=== PATIENT | female | born 1970 | race Hispanic/Latino ===

== ENCOUNTER 2020-02-23 11:44 | Emergency (ER) | payer BC, OTHER ==
--- OUTSIDE RECORDS SUMMARY | 2020-02-23 11:47 | XMS REPORT | Clinical Summary ---
:1970 Author Organization [facility] Address [address] [place] [address] Care Team Providers Name Role Phone Ricardo Villa MD Primary Care Provider Allergies Active Allergy Reactions Severity Noted Date Comments Nizatidine Rash Low 10/17/2018 Hydrocodone Other (See Comments) 10/17/2018 Deliriu m Morphine 10/21/2018 rash Promethazine Other (See Comments) 10/17/2018 Loss of feeling in lower extremities teodora aterally Medications Medication Sig Dispensed Refills Start Date End Date Status clonAZEPAM (KlonoPIN) 1 Take 1 mg by 0 Active MG tablet mouth 3 (three) times a day as needed for anxiety. FLUoxetine (PROzac) 40 Take 60 mg by 0 Active MG capsule mouth daily. levocetirizine (XYZAL) Take 5 mg by 0 Active 5 MG tablet mouth 2 (two) times a day as needed for allergies. omeprazole (PriLOSEC) Take 20 mg by 0 Active 20 MG capsule mouth daily. As needed for GERD ibuprofen Take 200 mg by 0 Activ e (ADVIL,MOTRIN) 200 MG mouth every 6 tablet (six) hours as needed for headaches. Only take 1-2 times per month ketotifen fumarate Apply 1 drop to 0 Active (ZADITOR OPHT) eye daily. Don't remember strength Active Problems Problem Noted Date Abnormal liver function 10/21/2018 Anxiety 10/21/2018 Abdominal pain 10/19/2018 Gallstones 10/17/2018 Elevated liver enzymes 10/17/2018 Overview: Added automatically from request for rod henson [id number] Generalized abdominal pain 10/17/2018 Overview: Added automatically from request for rod henson [id number] Cholangitis 10/17/2018 Overview: Added automatically from request for rod henson [id number] Surgical History Surgery Date Site/Laterality Comments APPENDECTOMY CHOLECYSTECTOMY, 10/20/2018 Abdomen/N/A Procedure: LAPA ROSCOPOIC LAPAROSCOPIC CHOLECYSTECTOMY WITH INTRAOPERATIVE C HOLANGIOGRAM; Surgeon: Jude Clinton MD; Location: [facility]; Service: General ; Laterality: N/A; US UPPER GI TRACT, 10/23/2018 Left Procedure: UPPER GI TRACT, ENDOSCOPIC ENDOSCOPIC; Rod geon: Stephanie Kapoor MD; Locati on: [facility]; Serv ice: Gastroenterology ; Laterality: Left; EGD W BIOPSY P 10/23/2018 N/A Procedure: EGD W ITH BIOPSY; Surgeon: Halie Kapoor MD; Location: [facility]; Service: Gastroe nterology; Laterality: N/A; Medical History Medical History Date Comments GERD (gastroesophageal reflux disease) IBS (irritable bowel syndrome) Asthma Symptomatic cholelithiasis Social History Tobacco Use Types Packs/Day Years Used Date Never Smoker Smokeless Tobacco: Never Used Alcohol Use Drinks/Week oz/Week Comments Never Alcohol Habits Answer Date Recorded How often do you have a drink containing alcohol? Never 10/17/2018 How many drinks containing alcohol do you have on a typical Not asked day when you are drinking? How often do you have six or more drinks on one occasion? 

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
[2020-02-23 19:35] VITALS: BP 159/109; TEMP 98.4; O2SAT 96
== END 2020-02-23 14:39 | disposition home or self-care (01) ==
LOC: ER 11:44
DX: S00.90XA Unspecified superficial injury of unspecified part of head, initial encounter (principal); Y04.2XXA Assault by strike against or bumped into by another person, initial encounter; Y93.89 Activity, other specified; Y92.009 Unspecified place in unspecified non-institutional (private) residence as the place of occurrence of the external cause; Z88.5 Allergy status to narcotic agent; Z88.8 Allergy status to other drugs, medicaments and biological substances
CPT/HCPCS: 70450; 99283

== ENCOUNTER 2021-08-26 14:31 | Emergency (ER) | payer SELFPAY ==
--- OUTSIDE RECORDS SUMMARY | 2021-08-26 14:34 | XMS REPORT | Continuity of Care Document ---
:1970 Author Organization [facility] t Address [address] [place] [address] Care Team Providers Name Role Phone Pcp, Does Not Have A Primary Care Physician Efrem SANDERS T Attending Clinician Unavailable Pcp, Does Not Have A Attending Clinician Only, Db Test Attending Clinician Unavailable Valencia BRAVO Attending Clinician VALENCIA Attending Clinician Unavailable EBFERNANDO Attending Clinician Unavailable BRANDIE Attending Clinician Unavailable PATRICE Attending Clinician Unavailable MD PATRICE Attending Clinician Unavailable PATRICE Admitting Clinician Unavailable MD PATRICE Admitting Clinician Unavailable Payers Payer Name Policy Type Policy Number Effective Date Expiration Date S ource Problems This patient has no known problems. Allergies, Adverse Reactions, Alerts Allergy Allergy Status Severity Reaction(s) Onset Inactive Treating Comm ents Source Name Type Date Date Clinician hydrocod DA Active 2018-04 [facility] one [place] 00:00: Health 00 are [facility] nizatidi DA Active SV 2018-04 [facility] ne 15 [place] 00:00: Health 00 are [facility] prometha DA Active SV 2018-04 [facility] ne [place] 00:00: Health 00 are [facility] hydrocod DA Active SV 2018-04 [facility] one [place] 00:00: Health 00 are [facility] nizatidi DA Active SV 2018-04 [facility] ne 0 [place] 00:00: Health 00 are [facility] prometha DA Active SV 2018-04 DOREEN gifford 0-14 [place] 00:00: [facility] 00 [facility] [place] [place] NO KNOWN Drug Active Univers ALLERGIE Class ity of S [facility] Social History Social Habit Start Date Stop Date Quantity Comments Source Exposure to Yes [facility] SARS-CoV-2 (event) [facility] [birth year] [facility] 00:[facility]00 [facility] [place] Smoking Status Start Date Stop Date Source Unknown if ever smoked [facility] Medications This patient has no known medications. Procedures This patient has no known procedures. Encounters Start End Encounter Admission Attending Care Care Encounter Source Date/Time Date/Time Type Type Clinicians Facility Department ID 2021-04-20 2021-04-20 Letter WALT Topete [id number] Univers 00:00:00 00:00:00 (Out) Keiry FLORES [id number] it y of HOSPITAL 4.2.7.2.686 Eyal as [id number] [address] 2021-04-19 2021-04-19 Telephone PcpWALT [id number] Univers 00:00:00 00:00:00 Patient SANDRA 350.1.13.10 it y of Does Not HOSPITAL 4[place]7.2.686 [place] A [id number] [address] 2021-04-17 2021-04-17 Laboratory Only, Ang Db Test [facility] 1.2.8 [id number] [id number] Univers 20:45:00 21:00:00 Only Valencia Nunu [facility] [id number] [facility] 4.2.7.2.686 Eyal as RUSTAM?BLEA [id number] Sd dical [address] MEDICAL OFFICE BUILDING 2021-04-17 2021-04-17 Outpatient R [facility]ENC[facility] [id number] Univers 20:45:00 20:53:15 NUNU [facility] 2021-04-17 2021-04-17 Outpatient Alexis [facility]ON [facility] [id number] Univers 18:00:00 18:00:00 MARCELINO [facility] 2021-03-24 2021-03-24 [facility] [id number] [place] 00:00:00 00:00:00 ARIAN [address] 2021-03-09 2021-03-13 Outpatient PATRICE, [place] [id number] [place] 00:00:00 00:00:00 CASS [address] 2020-06-03 2020-06-08 Outpatient PATRICE, [facility] [id number] [place] 00:00:00 00:00:00 CASS [address] Results Test Description Test Time Test Comments Results Result Comments Source SARS-CoV-2 (COVID-19) RNA [Presence] in Respiratory sp ecimen by 2021-03-09 22:00:27 EDILIA with probe detection Test Item Value Reference Range Interpretation Comme nts SARS-CoV-2 (COVID-19) RNA [Presence] in Respiratory Not detected No t-Detected specimen by EDILIA with probe detection (test code = 53380-4) Whether patient is employed in a healthcare setting (test code = 99011-3) Whether the patient has symptoms related to condition of interest (test code = 84675-7) Patient was hospitalized because of this condition (test code = 11234-9) Whether the patient was admitted to intensive care unit (ICU) for condition of interest (test code = 62320-8) Whether patient resides in a congregate care setting (test code = 47640-8) SURGICAL [id number] 14:14:00 RUN DATE: 01/18/19 [facility] - LAB PAGE 1 RUN TIME: 1414 Specimen Inquiry RUN USER: INTERFACE PATIENT: MARCELO MORA LOC: [place] Abraham #: [id number] AGE/SX: 48/F ROOM: RE01/16/19[facility] DR: Walt Fleming Jr, MD : 74 BED: DIS: STATUS: [facility] TLOC: SPEC #: [id number] RECD: 01/16/19 STATUS: SUNITA [place] #: [id number] CANDI: 01/16/[address] [facility] [address]: Walt Fleming Jr, MD ENTERED: 01/16/19 SP TYPE: SURG OTHR DR: ORDERED: PATHGM4/3, PATH SPEC, H E STAIN/3, GMS HISTOLOGY: TISSUE ID BLK PCS VIVEK LEV / PROCEDURE DISPOSITION ____ ___ ___ ___ ___ ANUS BIOPSYA 1 3 1 ILIUM B 1 3 [...] for fungal elements. B-SMALL BOWEL, TERMINAL ILEUM, BIOPS Y: - Small bowel mucosa with no pathologic change. C-COLON, RANDOM BIOPSIES: - Colonic mucosa with no significant histopathologic change. GROSS DESCRIPTION A-ANAL LESION BIOPSY: Received in formalin labeled "anal lesion biopsy" are three fragments of baeza-pink tissue measuring 0.2 to 0.3 cm each. The specimen is entirely submitted in a single cassette. B- TERMINAL ILEUM BIOPSY: Received in formalin labeled "terminal ileum biopsy" are six fragments of baeza-pink tissue measuring 0.3 cm each. The specimen is entirely submitted in a single cassette. C-RANDOM COLON BIOPSY: Received in formalin labeled "random colon biopsy" are multiple fragments of baeza-pinktissue measuring 0.3 cm each. The specimen is entirely submitted in a single cassette. HLH/eb CONTINUED ON NEXT PAGE RUN DATE: 01/18/19 [facility] - LAB PAGE 2 RUN TIME: 1414 Specimen Inquiry RUN USER: INTERFACE -------- ----SPEC #: [id number] PATIENT: MARCELO MORA #[id number] (Continued) MICROSCOPIC DESCRIPTION Microscopic performed. Signed SIGNATURE ON FILE Amelia Mullen 01/18/19 1414 ------ ------ END OF REPORT UR HCG [id number] 06:26:00 Test Item Value Reference Range Interpretation Comments UR HCG QUAL (test code = HCGQLU) NEGATIVE NEGATIVE
[2021-08-26] MEDS ORDERED: ONDANSETRON 4 MG (ODT) TAB ONE (15:16)
[2021-08-26] MEDS ORDERED: MECLIZINE HCL 12.5 MG TAB ONE (15:16)
--- NOTE | 2021-08-26 15:20 | RAD REPORT ---
EXAM DESCRIPTION: CT - Head Brain Wo Cont - 08/26/2021 3:14 pm CLINICAL HISTORY: dizziness Headache, drowsiness COMPARISON: Head Brain Wo Cont dated 02/23/2020 TECHNIQUE: All CT scans are performed using dose optimization technique as appropriate and may inclu de automated exposure control or mA/KV adjustment according to patient size. FINDINGS: No intracranial hemorrhage, hydrocephalus or extra-axial fluid collection.No areas of brai n edema or evidence of midline shift. The paranasal sinuses and mastoids are clear. The calvarium is intact. IMPRESSION: No acute intracranial abnormality.
[2021-08-26 15:41] LABS: Absolute Lymphocytes (CBC) 1.7 K/uL (0.7-4.9); Hematocrit 40.2 % (36.0-45.0); Lymphocytes % 13.8 % (15.3-44.8); MPV 6.9 fL (7.6-11.3); RBC Red Blood Cell Count 4.73 M/uL (3.86-4.86)
[2021-08-26 15:43] LABS: Urine Blood Negative (Negative); Urine Glucose Negative (Negative); Urine Protein Negative (Negative); Urine Specific Gravity 1.025 (1.005-1.030)
[2021-08-26 15:54] LABS: Potassium 3.8 mmol/L (3.5-5.1); Troponin High Sensitivity 3.2 pg/mL (<58.9)
[2021-08-26 16:14] LABS: Urine Bacteria 20-50 /HPF (<20); Urine RBC <5 /HPF (NONE SEEN)
[2021-08-26] MEDS ORDERED: DIAZEPAM 10 MG/2 ML INJ SYRINGE ONE (17:30)
--- NOTE | 2021-08-26 18:43 | EDPHYS ---
Physician Documentation [facility] Name: Deepti Soirano Age: 51 yrs Sex: Female : 1970 Arrival Date: 08/26/2021 Time: 14:32 Bed Treatment Private MD: ED Physician Hank Pina HPI: 08/26 14:57 This 51 yrs old Female presents to ER via Ambulatory with complaints of jmm Dizziness, Nausea. 14:57 Onset: The symptoms/episode began/occurred acutely. jmm 14:57 This is a 51-year-old female with history of anxiety, asthma, GERD that presents jmm emerged part with acute onset dizziness which occurred after standing up earlier today. Also complains of nausea. Denies vomiting. Denies unilateral weakness, denies slurred speech.. Historical: - Allergies: 14:55 Axid; iw 14:55 Hydrocodone-Acetaminophen; iw 14:55 Promethazine; iw - PMHx: 14:55 Anxiety; Arrythmia; Asthma; Depression; GERD; iw - Immunization history:: Adult Immunizations up to date. - Social history:: Smoking status: Patient denies any tobacco usage or history of. ROS: 14:57 Constitutional: Negative for fever, chills, and weight loss. jmm 14:57 Cardiovascular: Negative for chest pain, palpitations, and edema, Respiratory: Negative for shortness of breath, cough, wheezing, and pleuritic chest pain. 14:57 ENT: 14:57 Neuro: Positive for dizziness. 14:57 All other systems are negative. Exam: 14:57 Constitutional: This is a well developed, well nourished patient who is awake, alert, jmm and in no acute distress. Head/Face: atraumatic. Eyes: EOMI, no conjunctival erythema appreciated 14:57 Neck: Trachea midline, Supple Chest/axilla: Normal chest wall appearance and motion. Cardiovascular: Regular rate and rhythm. No edema appreciated Respiratory: Normal respirations, no respiratory distress appreciated Abdomen/GI: Non distended, soft Back: Normal ROM Skin: General appearance color normal MS/ Extremity: Moves all extremities, no obvious deformities appreciated, no edema noted to the lower extremities Neuro: Awake and alert 14:57 ENT: TM's: bulging, bilaterally. Vital Signs: 14:55 BP 146 / 100; Pulse 85; Resp 16; Temp 98.1; Pulse Ox 98% on R/A; iw 18:56 BP 122 / 65; Pulse 77; Resp 17; Pulse Ox 99% on R/A; magallanes MDM: 14:57 Patient medically screened. [facility] 18:40 Data reviewed: vital signs, nurses notes. Counseling: I had a detailed discussion with kiley the patient and/or guardian regarding: the historical points, exam findings, and any diagnostic results supporting the discharge/admit diagnosis, lab results, radiology results, the need for outpatient follow up, to return to the emergency department if symptoms worsen or persist or if there are any questions or concerns that arise at home. ED course: Dizziness improved. Patient advised to follow-up with ENT and otherwise given strict return precautions. Patient history agrees to plan of care.. 08/26 14:58 Order name: Basic Metabolic Panel; Complete Time: 16:02 [facility] 08/26 14:58 Order name: CBC with Diff; Complete Time: 15:46 [facility] 08/26 14:58 Order name: Troponin HS; Complete Time: 16:02 [facility] 08/26 15:43 Order name: Urine Dipstick-Ancillary; Complete Time: 15:44 [facility] 08/26 15:44 Order name: Urine Microscopic Only; Complete Time: 16:20 [facility] 08/26 15:44 Order name: Urine --Ancillary (enter results) 08/26 14:58 Order name: EKG; Complete Time: 14:58 [facility] 08/26 14:58 Order name: Cardiac monitoring; Complete Time: 15:28 [facility] 08/26 14:58 Order name: EKG - Nurse/Tech; Complete Time: 15:28 [facility] 08/26 15:00 Order name: CT Head Brain wo Cont; Complete Time: 15:26 [facility] 08/26 16:16 Order name: Urine Culture [facility] 08/26 14:58 Order name: IV Saline Lock; Complete Time: 15:28 [facility] 08/26 14:58 Order name: Labs collected and sent; Complete Time: 15:28 [facility] 08/26 14:58 Order name: O2 Per Protocol; Complete Time: 15:29 [facility] 08/26 14:58 Order name: O2 Sat Monitoring; Complete Time: 15:29 [facility] Administered Medications: 15:28 Drug: Meclizine 50 mg Route: PO; magallanes 15:28 Follow up: Response: No adverse reaction magallanes 15:28 Drug: Ondansetron 4 mg Route: PO; magallanes 15:28 Follow up: Response: No adverse reaction magallanes 17:34 Drug: Valium (diazepam) 2 mg Route: IVP; Site: left antecubital; Disposition: 19:03 Co-signature as Attending Physician, Hank Pina MD. rn Disposition Summary: 08/26/21 18:43 Discharge Ordered Location: Home [facility] Condition: Stable [facility] Diagnosis - Vertigo [facility] - UTI/ Urinary tract infection, site not specified [facility] Followup: [facility] - With: Damaris Pedraza MD - When: 2 - 3 days - Reason: Recheck today's complaints, Continuance of care, Re-evaluation by your physician Discharge Instructions: - Discharge Summary Sheet [facility] - Vertigo [facility] - How to Perform the Santo Maneuver [facility] Forms: - Medication Reconciliation Form [facility] - Thank You Letter [facility] - Antibiotic Education [facility] - Prescription Opioid Use [facility] Prescriptions: - Prednisone 20 mg Oral Tablet - take 3 tablets by ORAL route once daily for 5 days; 15 tablet; Refills: 0, [facility] Product Selection Permitted - cefdinir 300 mg Oral capsule - take 1 capsule by ORAL route every 12 hours for 10 days; 20 capsule; Refills: [facility] 0, Product Selection Permitted - Meclizine 25 mg Oral Tablet - take 1 tablet by ORAL route every 8 hours As needed; 30 tablet; Refills: 0, [facility] Product Selection Permitted Signatures: Dispatcher [employer] EDGamal Zuniga PA PA Heidy Ray RN RN Hank Pina MD MD rn Nicole-StagerMerry RN RN magallanes
--- NOTE | 2021-08-26 18:43 | ER ---
Nurse's Notes [facility] Name: Deepti Soriano Age: 51 yrs Sex: Female : 1970 Arrival Date: 08/26/2021 Time: 14:32 Bed Treatment Private MD: Diagnosis: Vertigo;UTI/ Urinary tract infection, site not specified Presentation: 08/26 14:55 Chief complaint: Patient states: dizzy and nausea today , feel like the ground is iw moving. Coronavirus screen: At this time, the client does not indicate any symptoms associated with coronavirus-19. Ebola Screen: Patient negative for fever greater than or equal to 101.5 degrees Fahrenheit, and additional compatible Ebola Virus Disease symptoms Patient denies exposure to infectious person. Patient denies travel to an Ebola-affected area in the 21 days before illness onset. No symptoms or risks identified at this time. Initial Sepsis Screen: Does the patient meet any 2 criteria? No. Patient's initial sepsis screen is negative. Does the patient have a suspected source of infection? No. Patient's initial sepsis screen is negative. Risk Assessment: Do you want to hurt yourself or someone else? Patient reports no desire to harm self or others. Onset of symptoms was August 26, 2021. 14:55 Method Of Arrival: Ambulatory iw 14:55 Acuity: ENRIQUETA 3 iw Triage Assessment: 15:08 General: Appears in no apparent distress. Behavior is calm, cooperative. GI: Reports magallanes nausea. Historical: - Allergies: 14:55 Axid; iw 14:55 Hydrocodone-Acetaminophen; iw 14:55 Promethazine; iw - PMHx: 14:55 Anxiety; Arrythmia; Asthma; Depression; GERD; iw - Immunization history:: Adult Immunizations up to date. - Social history:: Smoking status: Patient denies any tobacco usage or history of. Screenin:07 Abuse screen: Denies threats or abuse. Denies injuries from another. Nutritional magallanes screening: No deficits noted. Tuberculosis screening: No symptoms or risk factors identified. Fall Risk None identified. Assessment: 15:07 Pain: Denies pain. Neuro: Reports dizziness. Cardiovascular: Reports lightheadedness. magallanes GI: Abdomen is non-distended, Reports nausea, vomiting. GI: Reports. 17:00 Reassessment: Patient appears in no apparent distress at this time. Patient and/or iw family updated on plan of care and expected duration. Pain level reassessed. Patient is alert, oriented x 3, equal unlabored respirations, skin warm/dry/pink. pt states her dizziness has improved but not completely resolved Patient states feeling better. Vital Signs: 14:55 BP 146 / 100; Pulse 85; Resp 16; Temp 98.1; Pulse Ox 98% on R/A; iw 18:56 BP 122 / 65; Pulse 77; Resp 17; Pulse Ox 99% on R/A; magallanes ED Course: 14:32 Patient arrived in ED. mr 14:42 Gamal Herrera PA is PHCP. [facility] 14:42 Hank Pina MD is Attending Physician. [facility] 14:55 Triage completed. iw 15:07 Merry Castelan, MARILYN is Primary Nurse. [place] 15:07 Patient has correct armband on for positive identification. Bed in low position. magallanes 15:07 No provider procedures requiring assistance completed. magallanes 15:09 Arm band placed on. magallanes 15:15 CT Head Brain wo Cont In Process Unspecified. EDMS 15:29 Inserted saline lock: 20 gauge in left antecubital area, using aseptic technique. magallanes 18:42 Damaris Pedraza MD is Referral Physician. [facility] 18:56 IV discontinued, intact, Pressure dressing applied. magallanes Administered Medications: 15:28 Drug: Meclizine 50 mg Route: PO; magallanes 15:28 Follow up: Response: No adverse reaction magallanes 15:28 Drug: Ondansetron 4 mg Route: PO; magallanes 15:28 Follow up: Response: No adverse reaction magallanes 17:34 Drug: Valium (diazepam) 2 mg Route: IVP; Site: left antecubital; Medication: 15:07 VIS not applicable for this client. magallanes Outcome: 18:43 Discharge ordered by . [facility] 18:56 Discharged to home ambulatory, with family. [place] 18:56 Condition: good 18:56 Discharge instructions given to patient, Prescriptions given X 3. 18:57 Patient left the ED. magallanes Signatures: Dispatcher [employer] EDMS Gamal Herrera PA PA vandana NyaKaylan Heidy Vera RN RN Merry Castelan RN RN magallanes
[2021-08-26 19:03] VITALS: TEMP 98.1
[2021-08-26 19:05] VITALS: BP 122/65; O2SAT 99
[2021-08-26 22:17] LABS: Urine Specific Gravity/Preg 1.025 (1.005-1.030)
--- NOTE | 2021-08-27 07:54 | EKG ---
Test Date: 2021-08-26 Test Time: 15:21:27 Horticultural Farmer: [id number] MEASUREMENT RESULTS: Intervals: Rate: 84 NE: 142 QRSD: 84 QT: 408 QTc: 482 [place]: P: 14 NE: 142 QRS: 68 T: 47 INTERPRETIVE STATEMENTS: Normal sinus rhythm Prolonged QT Abnormal ECG Compared to ECG 02/22/2017 11:57:40 Prolonged QT interval now present Electronically Signed On 08-27-21 07:52:11 CDT by Mino Jimenez
== END 2021-08-26 18:57 | disposition home or self-care (01) ==
LOC: ER 14:31
DX: N39.0 Urinary tract infection, site not specified (principal); Z88.5 Allergy status to narcotic agent; Z88.8 Allergy status to other drugs, medicaments and biological substances
CPT/HCPCS: 36415; 70450; 80048; 81003; 81015; 81025; 84484; 85025; 87086; 87088; 93005; 96374; 99284; J3360; J8597